=== PATIENT | male | born 1960 | race Caucasian/White ===

== ENCOUNTER → 2023-06-10 06:12 | Day surgery (SDC) | payer OTHER, SELFPAY | LOC: GI 06:12 | PROVIDERS: ATTENDING PHYSICIAN Internal Medicine; FAMILY PHYSICIAN Family Medicine | DX: Z12.11 Encounter for screening for malignant neoplasm of colon (principal); K57.30 Diverticulosis of large intestine without perforation or abscess without bleeding; K64.8 Other hemorrhoids; D12.8 Benign neoplasm of rectum | CPT/HCPCS: 45385; 88305 ==

== ENCOUNTER 2023-09-10 06:51 | Outpatient (RCR) | payer OTHER, SELFPAY | END 2023-09-10 23:59 | disposition home or self-care (01) | LOC: CRHB 06:51 | PROVIDERS: ATTENDING PHYSICIAN Internal Medicine Cardiovascular Disease; FAMILY PHYSICIAN Family Medicine | DX: I25.10 Atherosclerotic heart disease of native coronary artery without angina pectoris (principal); Z95.5 Presence of coronary angioplasty implant and graft; I25.2 Old myocardial infarction | CPT/HCPCS: G0422; G0423 ==

== ENCOUNTER 2023-10-09 08:39 | Outpatient (RCR) | payer OTHER, SELFPAY | END 2023-10-09 23:59 | disposition home or self-care (01) | LOC: CRHB 08:39 | PROVIDERS: ATTENDING PHYSICIAN Internal Medicine Cardiovascular Disease; FAMILY PHYSICIAN Family Medicine | DX: I25.10 Atherosclerotic heart disease of native coronary artery without angina pectoris (principal); Z95.5 Presence of coronary angioplasty implant and graft; I25.2 Old myocardial infarction | CPT/HCPCS: G0422; G0423 ==

== ENCOUNTER → 2023-10-14 12:42 | Outpatient (REF) | payer OTHER, SELFPAY | LOC: RCS 12:42 | PROVIDERS: ATTENDING PHYSICIAN Internal Medicine Cardiovascular Disease; FAMILY PHYSICIAN Family Medicine | DX: I21.02 ST elevation (STEMI) myocardial infarction involving left anterior descending coronary artery (principal) | CPT/HCPCS: 93306 ==

== ENCOUNTER 2023-10-23 09:32 | Outpatient (RCR) | payer OTHER, SELFPAY | END 2023-11-06 15:04 | disposition home or self-care (01) | LOC: CRHB 09:32 | PROVIDERS: ATTENDING PHYSICIAN Internal Medicine Cardiovascular Disease; FAMILY PHYSICIAN Family Medicine | DX: I25.10 Atherosclerotic heart disease of native coronary artery without angina pectoris (principal); Z95.5 Presence of coronary angioplasty implant and graft; I25.2 Old myocardial infarction | CPT/HCPCS: G0422; G0423 ==

== ENCOUNTER → 2024-01-19 07:15 | Outpatient (REF) | payer OTHER, SELFPAY | LOC: RCS 07:15 | PROVIDERS: ATTENDING PHYSICIAN Internal Medicine Cardiovascular Disease; FAMILY PHYSICIAN Family Medicine | DX: I25.5 Ischemic cardiomyopathy (principal) | CPT/HCPCS: 93306; 93356 ==

== ENCOUNTER → 2024-09-27 16:53 | Outpatient (REF) | payer OTHER, SELFPAY | LOC: MRI 3T 16:53 | PROVIDERS: ATTENDING PHYSICIAN Surgery; FAMILY PHYSICIAN Family Medicine | DX: R97.20 Elevated prostate specific antigen [PSA] (principal) | CPT/HCPCS: 72197; A9575 ==

== ENCOUNTER 2024-11-08 06:32 | Day surgery (SDC) | payer OTHER, SELFPAY ==
[2024-10-27 08:56] LABS: Hematocrit 45.9 % (39.0-52.0); Hemoglobin 16.0 g/dL (13.0-18.0); Mean Corp Hgb Conc. 34.9 g/dL (33.0-37.0); Mean Corpuscular Volume 89.6 fL (80.0-94.0); Platelet Count 233 10^3/uL (130-400); Red Cell Dist. Width 12.5 % (11.5-14.5)
[2024-10-27 09:41] LABS: Blood Urea Nitrogen 13 mg/dl (9-20); Calcium 9.4 mg/dl (8.4-10.2); Carbon Dioxide 28 mmol/L (22-30); Chloride 107 mmol/L (98-107); Glucose 85 mg/dl (70-99); HDL Cholesterol 44 mg/dl; LDL Cholesterol, Calculated 23 mg/dl; Potassium 4.6 mmol/L (3.5-5.1); Sodium 141 mmol/L (135-145); Very Low Density Lipoprotein 21 mg/dl (0-30); eGFR > 60.00
[2024-10-27 14:14] VITALS: BMI 30.2
[2024-11-08] VITALS (13 sets, daily range): BP systolic 108–130; BP diastolic 58–92; BMI 30.2
[2024-11-08] MEDS: NORMOSOL-R/PLASMALYTE-A 1000 IV (13:55)
--- NOTE | 2024-11-08 16:48 | W.IMMPOSTOP ---
Surgical Immed Post Op Note
-
Primary Surgeon: Laci
Pre-op Diagnosis: BPH w/ massive intravesical obstructing median lobe
Post-op Diagnosis: Same
Procedure Performed: TURP
Anesthesia Type: LMA
Specimen / Cultures: prostate chips/None
Estimated Blood Loss: 3 cc
Drains: 22Fr 3-way catheter (30 cc in balloon)
Complications: None
Operative Findings:
1. Massive intravesical median lobe - resected completely down to bladder neck w/o undermining.
2. Bilateral UOs/verumontanum/external sphincter uninvolved w/ margins of resection.
3. Hypervascular prostate w/ inflammatory changes and multiple small bleeding points - completely hemostatic at conclusion of procedure.
Spouse updated post-op.
Admit to Urology for post-surgical recovery o/n for CBI.
[2024-11-08] MEDS: VALIUM INJECTION 2 MG IV (17:10)
[2024-11-08] MEDS: DETROL LA 4 MG PO (17:24)
[2024-11-08] MEDS: DILAUDID 0.25 MG IV (17:42)
--- NOTE | 2024-11-08 18:40 | PTCARENOTE ---
Pt arrived 1824 from PACU. VSS. CBI infusing, draining light pink urine. oriented to room and call serrano.
[2024-11-08] MEDS: MOTRIN 800 MG PO (22:26)
[2024-11-09 03:18] VITALS: BP 118/55
[2024-11-09 05:54] LABS: Hematocrit 40.8 % (39.0-52.0); Hemoglobin 15.0 g/dL (13.0-18.0); Mean Corp Hgb Conc. 36.8 g/dL (33.0-37.0); Mean Corpuscular Volume 88.1 fL (80.0-94.0); Nucleated Red Blood Cells % 0 % (-); Platelet Count 222 10^3/uL (130-400); Red Cell Dist. Width 12.4 % (11.5-14.5)
[2024-11-09 06:19] LABS: Blood Urea Nitrogen 17 mg/dl (9-20); Calcium 8.7 mg/dl (8.4-10.2); Carbon Dioxide 24 mmol/L (22-30); Chloride 109 mmol/L (98-107); Estimated Creatinine Clearance 106 ml/min; Glucose 116 mg/dl (70-99); Potassium 4.4 mmol/L (3.5-5.1); Sodium 137 mmol/L (135-145); eGFR > 60.00
[2024-11-09 07:27] VITALS: BP 108/68
[2024-11-09] MEDS: COZAAR 25 MG PO (07:54)
[2024-11-09] MEDS: LIPITOR 10 MG PO (07:54)
[2024-11-09] MEDS: THERAGRAN 1 TABLET PO (07:54)
[2024-11-09] MEDS: FLOMAX 0.4 MG PO (07:54)
[2024-11-09] MEDS: DETROL LA 4 MG PO (08:58)
[2024-11-09 11:40] VITALS: BP 116/65
--- NOTE | 2024-11-09 12:24 | W.DS.TRANS ---
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
-
Discharge Instructions:
Sleep Apnea Risk Intermediate
Discharge Diagnosis/Procedures BPH with ANGUIANO s/p TURP
Diet Regular
Activity No strenuous activity
Additional Activity No strenuous activity/exercise, sexual activity,
or heavy lifting x7 days per Dr. Aguero
Driving Restrictions No driving for 24 hours
Bathing Restrictions None
Blood Work not applicable
Others Tests not applicable
Wound Care not applicable
Instructions:
Stand-Alone Forms:
Changes to Home Medications: No
Discharge Medications:
DC Medications w/original date entered in [facility]
Vitamin D3 1 tab PO DAILY 11/01/24
aspirin 81 mg tablet 81 mg PO DAILY 11/01/24
Held on 11/09/24. Instructions: Resume on 11/11/24.
atorvastatin 10 mg tablet 10 mg PO DAILY 11/01/24
evolocumab 140 mg/mL subcutaneous pen injector (Repatha SureClick) 140 mg SC Q2W 11/01/24
losartan 25 mg tablet 25 mg PO DAILY 11/01/24
multivitamin 1 tab PO DAILY 11/01/24
naproxen sodium 220 mg tablet (Aleve) 440 mg PO Q12H PRN pain 11/01/24
tadalafil 5 mg tablet 5 mg PO DAILY 11/01/24
tamsulosin 0.4 mg capsule 0.4 mg PO DAILY 11/01/24
ciprofloxacin HCl 500 mg tablet 500 mg PO BID UTI prophylaxis 5 days #10 tabs 11/09/24
phenazopyridine 200 mg tablet (Pyridium) 200 mg PO BID PRN dysuria 4 days #8 tabs 11/09/24
Home Medication Changes
Pending Results: Yes
Additional Pending Results:
surgical pathology (Dr. Aguero will call in 7-10 days to review)
Total time spent discharging patient (in min): 35
--- NOTE | 2024-11-09 12:38 | CM ---
CM met with pt and spouse bedside
They reside in a [facility]
Pt is POD#1 TURP and cleared for dc
Pt is independent in room and he noted no concerns with steps throughout home
Spouse will drive home
Discharge Disposition- home no needs, spouse transport
== END 2024-11-09 13:08 | disposition home or self-care (01) ==
LOC: SDS 06:32
PROVIDERS: ATTENDING PHYSICIAN Surgery; FAMILY PHYSICIAN Family Medicine; REFERRING PHYSICIAN Internal Medicine Cardiovascular Disease
DX: N40.1 Benign prostatic hyperplasia with lower urinary tract symptoms (principal)
CPT/HCPCS: 52601; 36415; 80048; 80061; 85025; 85027; 88305